=== PATIENT | female | born 1990 | race Caucasian/White ===

== ENCOUNTER 2021-01-31 06:00 | Day surgery (SDC) | payer OTHER ==
[~2021-01-31] VITALS: Ht 160 cm; Wt 76.0 kg
[~2021-01-31 06:00] MED LIST: IRON325 M1 PO; MULTI-DAY PLUS1 EAC1 PO
--- NOTE | 2021-01-31 10:12 | NUR ---
01/31/21 1012 Beatriz Lewis 1007- PT TO PACU IN SUPINE POSITION. EYES CLOSED. RESPONDS TO VERBAL AND TACTILE STIMULI BUT KEEPS EYES CLOSED. BREATHING EASY AND UNLABORED. SPO2 >95% ON 10 L O2 VIA SIMPLE MASK.
--- NOTE | 2021-01-31 11:08 | NUR ---
PATIENT BACK TO DAYSURGERY FROM PACU, REPORT AT BEDSIDE FROM SHAHRZAD BUSTILLO. PATIENT AWAKE AND ALERT. MINIMAL PAIN, ADMINISTERED PAIN MEDICATION PER MAR. PATIENT TOLERATING SIPS OF FLUID AND SNACKS. CALL LIGHT WITHIN REACH.
--- NOTE | 2021-01-31 11:45 | NUR ---
PATIENT UP TO BATHROOM STEADY ON FEET. REPORTS PAIN MEDICAITON EFFECTIVE. VOIDED WELL. PATIENT REQUESTED TO WEAR BRIEF HOME INSTEAD OF MESH PANTI AND KENDELL PAD. PROVIDED ITEMS TO PATIENT. PROVIDED DISCHARGE INSTRUCTION, AND WHEELCHAIR RIDE TO FRONT. PATIEN TRANSFERED WELL INTO [facility].
--- NOTE | 2021-02-01 15:22 | PATH ---
[facility] [address] [place], [place] [address] Signed SPECIMEN(S): A ENDOMETRIAL CURETTINGS SPECIMEN SOURCE: A. ENDOMETRIAL CURETTINGS CLINICAL HISTORY: Hysteroscopy DC with myomectomy. Uterine mass, abnormal uterine bleeding. FINAL PATHOLOGIC DIAGNOSIS: Endometrium, curettage: - Disordered proliferative endometrium. - Fragments of myometrium with no histopathologic abnormality. - Negative for atypical hyperplasia or malignancy. COMMENT: As part of [facility]' Quality Improvement Program, this case was reviewed by another member of our pathology staff. NAL:NRT:cml:C2NR MICROSCOPIC EXAMINATION: Histologic sections of all submitted blocks are examined by light microscopy. These findings, together with the gross examination, support the pathologic diagnosis. GROSS DESCRIPTION: The specimen, labeled "AM, A.," and designated on the requisition "endometrial curettings," is received in formalin and consists of linton tissue fragments with mucus and thickened clot material measuring 4.3 x 2.5 x 0.7 cm in aggregate. Specimen is filtered and entirely submitted in cassettes (A1-A2). AT (under the direct supervision of a pathologist) The Gross Description was prepared using a voice recognition system. The report was reviewed for accuracy; however, sound-alike word errors, addition and/or deletions may occur. If there is any question about this report, please contact Client Services. PERFORMING LABORATORY: The technical component was performed by [facility], [address] [place] [id number] (Looping Machine Operator: Magalie Rutledge MD; CLIA# [id number]). Professional interpretation was performed by [facility], [address] [facility]. [address], PATIENT NAME: KAROLINA STREETER PATHOLOGY DATE OF : [birth year] REPORT #: [id number] PHYSICIAN: GABRIEL PATHOLOGY PCP: NO PRIMARY CARE PHYSICIAN REPORT IS CONFIDENTIAL AND NOT TO BE RELEASED WITHOUT AUTHORIZATION [facility] [address] [facility] [place], [place] [address] Signed [place] [id number] (CLIA# [id number]). Diagnostician: Nadira Cobian MD Pathologist Electronically Signed 02/01/2021 Copies: ~ PATIENT NAME: KAROLINA STREETER PATHOLOGY DATE OF : [birth year] REPORT #: [id number] PHYSICIAN: GABRIEL PATHOLOGY PCP: NO PRIMARY CARE PHYSICIAN REPORT IS CONFIDENTIAL AND NOT TO BE RELEASED WITHOUT AUTHORIZATION
== END 2021-01-31 11:50 | disposition home or self-care (01) ==
LOC: DS 06:00 → OPS 06:00 → DS 11:30 → OPS 11:30
PROVIDERS: ATTEND Obstetrics & Gynecology
PROC: 0UDB8ZX Extraction of Endometrium, Via Natural or Artificial Opening Endoscopic, Diagnostic (ICD-10-PCS; principal; 2021-01-31 08:45)
DX: N85.8 Other specified noninflammatory disorders of uterus (principal); N93.9 Abnormal uterine and vaginal bleeding, unspecified; N76.0 Acute vaginitis; B96.89 Other specified bacterial agents as the cause of diseases classified elsewhere; D50.8 Other iron deficiency anemias; F17.210 Nicotine dependence, cigarettes, uncomplicated; Z20.822 Contact with and (suspected) exposure to COVID-19
CPT/HCPCS: 00952; J1100; J1885; J2250; J2270; J2405; J2704; J2765; J3010; J7121; U0003

== ENCOUNTER 2021-03-25 22:46 | Emergency (ER) | payer OTHER ==
[~2021-03-25] VITALS: Ht 160 cm; Wt 70.3 kg
[2021-03-26] MEDS ORDERED: TRANEXAMIC ACI650 MG PO (01:42)
[2021-04-15] MEDS ORDERED: TRIAMCINOLONE A15 G1 TOP (16:09)
[2021-04-15] MEDS ORDERED: COZAAR25 MG PO (16:09)
[2021-04-15] MEDS ORDERED: HYDROXYZINE HCL25 MG (16:10)
[2021-04-15] MEDS ORDERED: GELUSIL PO (16:10)
== END 2021-03-26 02:08 | disposition home or self-care (01) ==
LOC: ED 22:46
DX: N93.9 Abnormal uterine and vaginal bleeding, unspecified (principal); D25.9 Leiomyoma of uterus, unspecified; F17.200 Nicotine dependence, unspecified, uncomplicated; Z88.8 Allergy status to other drugs, medicaments and biological substances; Z79.899 Other long term (current) drug therapy
CPT/HCPCS: 96374; 96375; 99283-25; J1170; J2405

== ENCOUNTER 2021-04-25 06:55 | Day surgery (SDC) | payer OTHER ==
[~2021-04-25] VITALS: Ht 160 cm; Wt 70.5 kg
[~2021-04-25 06:55] MED LIST changes: +COZAAR25 MG PO; +GELUSIL PO; +HYDROXYZINE HCL25 MG; +TRANEXAMIC ACI650 MG PO; +TRIAMCINOLONE A15 G1 TOP
--- NOTE | 2021-04-25 11:45 | NUR ---
04/25/21 1145 Sheets,Luiza 1139 PT ARRIVED TO PACU ON 10L VIA MASK WITH ORAL AIRWAY IN PLACE. RESP EVEN AND UNLABORED. VSS. JAW THRUST USED OFF AND ON TO MAINTAIN AIRWAY. ABD BINDER IN PLACE FROM OR.
--- NOTE | 2021-04-25 13:30 | NUR ---
RCVD PT FROM INSTRUCTOR HAIRSPRING ANNA. PT ABLE TO TRANSFER SELF TO BED BY STAND BY ASSIST, RANDY LUNA. OXYGEN IN PLACE, NC 2 LITERS. WIN[place]OW DRAINING TO BEDSIDE BAG. PT REPORTS WANTING TO EAT NOW, REG LUNCH ORDERED. BOWEL TONES PRESENT. SCD'S IN PLACE. ORIENTED TO ROOM AND CALL LIGHT.
--- NOTE | 2021-04-25 14:00 | NUR ---
PT MEDICATED WITH MOTRIN AND 1 PERCOCET. RANDY REG DIET WELL. K PAD TO BACK. WATER FILLED.
--- NOTE | 2021-04-25 14:30 | NUR ---
PT TEARFUL AND STATES PAIN OUT OF CONTROL. MEDICATED WITH 1 MORE TAB PERCOCET.
--- NOTE | 2021-04-25 15:19 | NUR ---
DERMAPLAST SPRAY TO PERINEUM DUE TO CATHETER DISCOMFORT. PT REPORTS BACK PAIN RELIEF. OXYGEN REPLACED DUE TO PT WISHING TO NAP. PULSE OX IN PLACE.
--- NOTE | 2021-04-25 15:56 | NUR ---
VSS. PT RESTS IN BED. OFFERED RECLINER FOR COMFORT DUE TO BACK PAIN. PT REFUSES. STATES PAIN 6/10 AND THATS WHAT IS HER NORMAL THAT SHE LIVES WITH. NO NEEDS VOICED.
--- NOTE | 2021-04-25 16:40 | NUR ---
PT SITTING UP IN HIGH FOWLERS ON PHONE. PT DENIES NEEDS. PT DONNED OWN CLOTHING. ORDERED REG DINNER. NO FURTHER NEEDS.
--- NOTE | 2021-04-25 19:10 | NUR ---
PT AWAKE AND ALERT, BEDSIDE REPORT RECEIVED FROM ANA LUISA BUSTILLOC, PT WITHOUT REQUEST AT THIS TIME.
--- NOTE | 2021-04-25 20:00 | NUR ---
DR MONSALVE IN FOR A VISIT TO DISCUSS SURGERY, PT'S QUESTIONS ANSWERED AND PT VOICES UNDERSTANDING. DR MONSALVE REQUEST RN TO GIVE ENOXAPARIN ORDERED TONIGHT.
--- NOTE | 2021-04-25 21:15 | NUR ---
RN TO ROOM, PT UP IN BR CHANGING PERIPAD, STATES SHE IS WITHOUT DIZZINESS AND TOOK IT SLOW AMBULATING TO BR, RN ENCOURAGED PT TO CALL FOR ASSIST PRN. RN ASSIST WITH PLACING ON DEPENDS, PT IS CURRENTLY ON HER MENCES, FLOW MODERATE DARK RED WITHOUT CLOTS, LINEN CHANGED AND TEMPURPEDIC PAD PLACED ON BED.
--- NOTE | 2021-04-25 21:38 | NUR ---
PT BACK TO BED, SCDS REPLACED, RT MEDS GIVEN, PT REQUESTING HER HYDROXAZINE 25 MG, GIVEN PER ORDER, ASSESSMENT AND VS DONE, ABDOMINAL BINDER IN PLACE, WIN[place]OW EMPTIED 750 ML CLEAR YELLOW URINE, PT DRINKING WATER WELL WITHOUT NAUSEA AND VOMITING. PT ATTEMPITNG TO REST.
--- NOTE | 2021-04-26 00:15 | NUR ---
PT ASLEEP, RESP EVEN AND REGULAR
--- NOTE | 2021-04-26 02:16 | NUR ---
PT REQUESTING PAIN MED, MED PER ORDER WITH OXYCODONE 10MG PO
--- NOTE | 2021-04-26 04:00 | NUR ---
PT RESTING QUIETLY WITHOUT DISTRESS.
--- NOTE | 2021-04-26 07:20 | NUR ---
SHIFT REPORT GIVEN, PT ASLEEP, WITHOUT DISTRESS.
--- NOTE | 2021-04-26 07:38 | NUR ---
SHIFT ASSESSMENT COMPLETE. VSS. PT AAO X3. IV SITE INTACT AND BENIGN ABD BANDAGE DRY AND INTACT. SMALL DIME SIZED SHADOWING NOTED ON ABD BANDAGE AND OUTLINED. VAG DISCHARGE SCANT. POC DISCUSSED WITH PT. PT AGREEABLE.
--- NOTE | 2021-04-26 08:00 | NUR ---
WINSLOW CATH DRAINED OF 350 ML CLR YELLOW URINE. WINSLOW CATH DC'D WITH TIP INTACT. PT TOLERATES WELL.
--- NOTE | 2021-04-26 08:05 | NUR ---
PT UP TO BR AFTER WIN[place]OW REMOVAL AND VOID 100 ML CLR YELLOW URINE.
--- NOTE | 2021-04-26 09:21 | NUR ---
MEDICATED FOR PAIN PER PT REQUEST (SEE EMAR).
--- NOTE | 2021-04-26 09:35 | NUR ---
AM MEDS PROVIDED (SEE EMAR). BREAKFAST, REG DIET EATEN. TOLERATES WELL.
--- NOTE | 2021-04-26 11:29 | NUR ---
SMALL DIME SIZED SHADOWING NOTED ON ABD DRESSING AND OUTLINED.
--- NOTE | 2021-04-26 12:06 | NUR ---
VSS. MEDICATED FOR PAIN PER PT EQUEST (SEE EMAR). VOIDS 300 ML CLR YELLOW URINE WITHOUT DIFFICULTY.
--- NOTE | 2021-04-26 13:55 | NUR ---
RATES LOP DECREASED. SCHEDULED MOTRIN PROIVDED (SEE EMAR). lUNCH, REG DIET EATEN. SIGNIFICANT OTHER AT PT BEDSIDE. PT DENIES NEEDS.
--- NOTE | 2021-04-26 15:25 | NUR ---
MEDICATED FOR PAIN PER PT REQUEST (SEE EMAR). ICE WATER PROVIDED. SIGNIFICANT OTHER REMAINS AT PT BEDSIDE. PT DENIES FURTHER NEEDS.
--- NOTE | 2021-04-26 19:19 | NUR ---
MEDICATED FOR PAIN PER PT REQUEST. DENIES FURTHER NEEDS.
--- NOTE | 2021-04-26 19:21 | NUR ---
REPORT TO PHOTO TECHNOLOGIST
--- NOTE | 2021-04-26 23:19 | NUR ---
PT AMBULATES IN HALLWAY, DENIES NEEDS AT THIS TIME
--- NOTE | 2021-04-27 00:13 | NUR ---
PT UP TO BR TO VOID, REPORTS PAIN WITH VOIDING. HAT RETURNED TO TOILET TO MONITOR VOIDS. RETURNS TO BED. FRESH WATER. DENIES NEEDS.
--- NOTE | 2021-04-27 01:52 | NUR ---
PT RESTING WITH EYES CLOSED AND LIGHTS OFF, LEFT UNDISTURBED AT THIS TIME.
--- NOTE | 2021-04-27 04:14 | NUR ---
FOCUSED ASSESSMENT AND VS COMPLETE. PT RESTING IN BED AND WATCHING TV. SNACK TRAY CLEARED. REPORTS ABD FEELS HOT, KPAD AND ABD BINDER REMOVED. SMALL DRAINAGE NOTED ON ABD PAD, NOT OUTSIDE OF PREVIOUS OUTLINE. DENIES FURTHER NEEDS AT THIS TIME. ENCOURAGED REST.
--- NOTE | 2021-04-27 05:57 | NUR ---
PT SLEEPING SOUND, NORMAL RESPIRATIONS, WILL RETURN FOR MEDICATION ADMINSTRATION AND PAIN ASSESSMENT.
--- NOTE | 2021-04-27 06:38 | NUR ---
PT WAKES TO THIS RN VOICE FOR SCHEDULED MEDICATION. PT REQUESTS ADDITIONAL PAIN RX FOR 7/10 ABDOMINAL PAIN. PAIN MEDS ADMINISTERED AND PT RETURNS TO RESTING.
--- NOTE | 2021-04-27 08:00 | NUR ---
SHIFT ASSESSMENT COMPLETE. PT UP IN CHAIR EATING BREAKFAST. ICE WATER PROVIDED.
--- NOTE | 2021-04-27 09:32 | NUR ---
MEDICATED FOR PAIN PER PT REQUEST (SEE EMAR). DR. MONSALVE IN TO EXAMINE PT. ABD BANDAGE REMOVED BY DR. MONSALVE. ABD INCISION CDI AND WELL APPROXIMATED WITH RICKEY. PT TOLERATES WELL.
--- NOTE | 2021-04-27 10:45 | NUR ---
RATES LOP SOMEWHAT DECREASED. AMBULATES IN CUETO. TOLERATES ACTIVITY WELL.
[2021-04-27] MEDS ORDERED: NICOTINE PATCH1 EACH TD (11:37)
[2021-04-27] MEDS ORDERED: OXYCODONE HCL5 MG PO (11:38)
[2021-04-27] MEDS ORDERED: IBUPROFEN800 MG PO (11:41)
[2021-04-27] MEDS ORDERED: COLACE100 MG PO (11:41)
--- NOTE | 2021-04-27 11:53 | NUR ---
PT C/O DEAN AFTER NAP. VSS. ICE PACK PROVIDED FOR HEAD.
--- NOTE | 2021-04-27 12:00 | NUR ---
DC INSTRUCTIONS WITH PRECAUTIONS PROVIDED. PRESCRIPTION AND MEDICATION INSTRUCTIONS PROVIDED. PT VERBALIZES UNDERSTANDING.
--- NOTE | 2021-04-27 12:20 | NUR ---
DC'D TO HOME BY WC WITH SIGNIFICANT OTHER.
--- NOTE | 2021-05-01 18:06 | PATH ---
[facility] [address] [place], [place] [address] Signed SPECIMEN(S): A UTERUS SPECIMEN SOURCE: A. UTERUS CLINICAL HISTORY: Abnormal uterine bleeding; interstitial cystitis; submucosal leiomyoma of uterus FINAL PATHOLOGIC DIAGNOSIS: Uterine mass, excision: - Fragments of leiomyoma. COMMENT: As part of [facility]' Quality Improvement Program, this case was reviewed by another member of our pathology staff. NAL:tod:C2NR MICROSCOPIC EXAMINATION: Histologic sections of all submitted blocks are examined by light microscopy. The tissues were extensively sampled to reveal a benign smooth muscle proliferation in fascicles and whorls. Foci of hemorrhage and ischemic-type necrosis are seen, but mitoses are not increased. Evidence of malignancy is not identified. These findings, together with the gross examination, support the pathologic diagnosis. GROSS DESCRIPTION: The specimen, labeled "AM, A," and designated on the requisition "uterine mass, abnormal uterine bleeding, submucosal leiomyoma of uterus, interstitial cystitis," is received in formalin and consists of 301 g, six piece, somewhat encapsulated, somewhat lobulated, linton rubbery masses from 1.2 up to 11.7 cm in greatest dimension. Also in the container is an irregular shaped 5.7 x 1.8 x 0.5 cm segment of clotted blood. The smallest tissue mass is inked black, the second smallest tissue mass is inked yellow, the third smallest tissue mass is inked green, the fourth smallest tissue mass is inked orange, the second largest tissue mass is inked red, and the largest mass is blue. The masses are cross-sectioned to reveal somewhat lobulated, partially marbled linton-white tissue. The largest PATIENT NAME: KAROLINA STREETER PATHOLOGY DATE OF : [birth year] REPORT #: [id number] PHYSICIAN: GABRIEL KNOX PCP: KAROLINA MENDEZ NP REPORT IS CONFIDENTIAL AND NOT TO BE RELEASED WITHOUT AUTHORIZATION [facility] [address] [place], [place] [address] Signed mass has multiple, pink-red, softened, and discolored areas. A grossly definitive uterus or cervix is not identified. An additional discrete mass/lesion is not grossly identified. Quality Systems Specialist sections are submitted in four cassettes (A1-A4). AI (under the direct supervision of a pathologist) Per request by Dr. Cobian sections of the 2 largest masses are submitted as follows: A5-A10 largest mass A11-A14 second largest mass AI 04/30/21 9:37 AM The Gross Description was prepared using a voice recognition system. The report was reviewed for accuracy; however, sound-alike word errors, addition and/or deletions may occur. If there is any question about this report, please contact Client Services. PERFORMING LABORATORY: The technical component was performed by [facility], [address] [place] [address] (Perinatal Breastfeeding Assistant: Magalie Rutledge MD; CLIA# [id number]). [facility], [address] [place] [id number] (CLIA# [id number]). Diagnostician: Nadira Cobian MD Pathologist Electronically Signed 05/01/2021 Copies: ~ PATIENT NAME: KAROLINA STREETER PATHOLOGY DATE OF : [birth year] REPORT #: [id number] PHYSICIAN: GABRIEL PATHOLOGY PCP: KAROLINA MENDEZ NP REPORT IS CONFIDENTIAL AND NOT TO BE RELEASED WITHOUT AUTHORIZATION
--- NOTE | 2021-05-06 10:47 | OR ---
[address] [place] [address] Signed DATE OF OPERATION: 04/25/2021 SURGEON: Curry Barraza DO PROCEDURE: Electronically Signed By: CURRY BARRAZA DO 05/06/21 1047 PATIENT NAME: KAROLINA STREETER OPERATIVE REPORT DATE OF : [birth year] REPORT #: [id number] PHYSICIAN: CURRY BARRAZA DO PCP: KAROLINA MENDEZ NP REPORT IS CONFIDENTIAL AND NOT TO BE RELEASED WITHOUT AUTHORIZATION [address] [place], [place] [address] Signed Abdominal myomectomy. SCALE EXPERT: Dr. Smith. BLOOD LOSS: 75 mL. COMPLICATIONS: None. LINES: None. DRAINS: Velez catheter. FINDINGS: Enlarged uterus with a boggy texture, abnormal appearing 10 cm fibroid, which was removed in two separate pieces, unusually spongy in consistency. Following removal normal-sized uterus, normal-appearing fallopian tubes and bilateral ovaries. INDICATION: The patient is a 31-year-old female with recent history of menorrhagia, significant pelvic pain and pressure, dysmenorrhea, and uterine fibroids. She strongly desires definitive surgical management. Risks, benefits, and alternatives to abdominal myomectomy were discussed. She elected to proceed. DESCRIPTION OF PROCEDURE: The patient was given 2 g of Ancef IV and 5000 units heparin subcutaneously and was taken back to the operating room. She was positioned in supine position and placed under general anesthesia. She was prepped and draped in a normal sterile fashion and a Pfannenstiel incision was made with a scalpel and carried down to the underlying layer of fascia with Bovie cautery and the fascia was incised in midline and extended laterally with Nesbitt scissors. Inferior margin was grasped and elevated and underlying rectus muscle was dissected off bluntly and sharply with Nesbitt scissors. This was released and the superior margin of fascia was grasped and elevated and underlying rectus muscle was dissected off bluntly and sharply with Nesbitt scissors. Peritoneum was identified and entered sharply with Metzenbaum and peritoneum was extended superiorly using bandage scissors and inferiorly with gentle lateral traction. Wero retractor Electronically Signed By: CURRY BARRAZA DO 05/06/21 1047 PATIENT NAME: KAROLINA STREETER OPERATIVE REPORT DATE OF : [birth year] REPORT #: [id number] PHYSICIAN: CURRY BARRAZA DO PCP: KAROLINA MENDEZ NP REPORT IS CONFIDENTIAL AND NOT TO BE RELEASED WITHOUT AUTHORIZATION [address] [address] Signed was placed. Abdomen was packed with two sterile saline soaked lap sponges and uterus, tubes, and ovaries were inspected with findings as noted above. 2 units of vasopressin diluted in 10 mL sterile saline were injected in the myometrium. Vertical invision was made at the anterior fundus with Bovie cautery to the level of the fibroid. The fibroid was grasped with a double-toothed tenaculum and shelled out of the surrounding myometrium with blunt and sharp dissection with Metzenbaum scissors. The fibroid was noted to be abnormally soft in consistency. The endometrium was noted to be very thin overlying this fibroid and the endometrial cavity was entered at the level of the fundus. Remainder of the fibroid was shelled out without further incident, although entirety of the fibroid could not be confirmed as there was possible small extension towards the lower uterine segment. Fibroid was submitted to pathology. Endometrial cavity was reapproximated with 3-0 chromic in a alfqxs-[id number] fashion. Myometrium was closed in three layers with 0 Vicryl using a running fashion for the first two layers and a baseball stitch with 3-0 StrataFix at the serosal layer. Additional oozing was noted at the fundal end of the incision and the subserosal closure in a subcuticular manner was performed with 3-0 StrataFix. An additional [id number] suture of 0 Monocryl was placed at the superior apex after which excellent hemostasis of the incision was noted. The abdomen was irrigated with warm sterile water after which all packing was removed and surgeon's gloves were changed. Suction tip was changed and packing was replaced. Tisseel was applied over the hysterotomy with excellent hemostasis again noted. Packing was removed. Perineum was closed with 3-0 Vicryl in a running fashion. Rectus muscles were reapproximated with 0 Vicryl in a simple interrupted fashion using total of two stitches. The fascia was closed with 0 Vicryl in a running fashion and perforating subcutaneous vessels were cauterized with Bovie cautery before subcutaneous layer was reapproximated with 3-0 Vicryl in a running fashion and skin was closed with skin clips. The patient remained in the OR for a tap block to be performed by Anesthesia. Sponge and instrument counts were correct and she is noted to be in stable and satisfactory condition. Curry Barraza DO EM/MODL /[id number] Electronically Signed By: CURRY BARRAZA DO 05/06/21 1047 PATIENT NAME: KAROLINA STREETER OPERATIVE REPORT DATE OF : [birth year] REPORT #: [id number] PHYSICIAN: CURRY BARRAZA DO PCP: KAROLINA MENDEZ NP REPORT IS CONFIDENTIAL AND NOT TO BE RELEASED WITHOUT AUTHORIZATION [address] [place] [address] Signed Copies: ~ Electronically Signed By: CURRY BARRAZA DO 05/06/21 1047 PATIENT NAME: FERDINANDKAROLINAANKUR SMITH OPERATIVE REPORT DATE OF : [birth year] REPORT #: [id number] PHYSICIAN: CURRY BARRAZA DO PCP: KAROLINA MENDEZ NP REPORT IS CONFIDENTIAL AND NOT TO BE RELEASED WITHOUT AUTHORIZATION
== END 2021-04-27 12:20 | disposition home or self-care (01) ==
LOC: DS 06:55 → FBC 13:10 → DS 04-27 12:20
PROVIDERS: ATTEND Obstetrics & Gynecology
PROC: 0UB90ZZ Excision of Uterus, Open Approach (ICD-10-PCS; principal; 2021-04-25 09:00)
DX: D25.0 Submucous leiomyoma of uterus (principal); G89.18 Other acute postprocedural pain; F17.210 Nicotine dependence, cigarettes, uncomplicated; N30.10 Interstitial cystitis (chronic) without hematuria; K21.9 Gastro-esophageal reflux disease without esophagitis; I10 Essential (primary) hypertension; F41.9 Anxiety disorder, unspecified; K59.00 Constipation, unspecified; Z88.8 Allergy status to other drugs, medicaments and biological substances
CPT/HCPCS: 00840; 64488; 76942; 85027; J0690; J1100; J1170; J1644; J1650; J1885; J2001; J2250; J2405; J2704; J2795; J3010; J7121

== ENCOUNTER 2022-05-15 07:55 | Day surgery (SDC) | payer OTHER ==
[~2022-05-15] VITALS: Ht 160 cm; Wt 68.2 kg
--- NOTE | ~2022-05-15 | OR ---
[facility] [address] [facility] [place] [address] Draft DATE OF OPERATION: 05/15/2022 SURGEON: Curry Barraza DO PROCEDURE: Hysteroscopy, D and C-failed attempt. PREOPERATIVE DIAGNOSES: 1. Submucosal fibroid. 2. Dysmenorrhea. 3. History of abdominal myomectomy. POSTOPERATIVE DIAGNOSES: 1. Submucosal fibroid. 2. Stenotic cervix. 3. Dysmenorrhea. 4. History of abdominal myomectomy. DIRECTOR OF REVENUE: Mario Guerrier MD. BLOOD LOSS: 15 mL. ANESTHESIA: Monitored anesthesia care. INDICATIONS: The patient is a 32-year-old female nulligravid with history of abdominal myomectomy, who began having worsening dysmenorrhea and bleeding. Repeat ultrasound was performed demonstrating a 3 cm submucosal fibroid in the same location as her prior fibroid. Due to her symptoms and desire for childbearing, the patient strongly desired hysteroscopic myomectomy. Risks, benefits, and alternatives were discussed and she elected to proceed. DESCRIPTION OF PROCEDURE: The patient was taken to the operating room where she was positioned in dorsal lithotomy and placed under monitored anesthesia care. A weighted speculum was placed in the vagina and anterior lip of the cervix was grasped with an Allis clamp. External os of the cervix was easily sequentially dilated with Hegar dilators. Of note, resistance was PATIENT NAME: FERDINANDKAROLINAANKUR SMITH OPERATIVE REPORT DATE OF : [birth year] REPORT #: [id number] PHYSICIAN: CURRY BARRAZA DO PCP: KAROLINA MENDEZ NP REPORT IS CONFIDENTIAL AND NOT TO BE RELEASED WITHOUT AUTHORIZATION [facility] [address] [place], [place] [address] Draft met at the internal os and decision was made to assess with hysteroscope which was then introduced using sterile saline as a distension media with the Aquilex system. Internal os could be visualized, but despite attempts at hydrodissection and repeated attempts at dilation with the Hegar dilators, internal os was not appreciably entered. At one point, what appeared to potentially be uterine cavity with the left tubal ostia visible was entered, but if this is the case and significant scarring was present on the right occluding right tubal ostia. Due to significant distortion of anatomy and concern for creation of , no further operative measures were performed. All instrumentation was removed. Fluid deficit was noted to be 180 mL without any significant increases at any point during the procedure. Hemostasis was noted and sponge and instrument counts were correct. The patient was taken to recovery in stable and satisfactory condition. DO MAYLIN Bower/MODL /[id number] Copies: ~ PATIENT NAME: FERDINANDARVINKAROLINAANKUR SMITH OPERATIVE REPORT DATE OF : [birth year] REPORT #: [id number] PHYSICIAN: CURRY BARRAZA DO PCP: KAROLINA MENDEZ NP REPORT IS CONFIDENTIAL AND NOT TO BE RELEASED WITHOUT AUTHORIZATION
[~2022-05-15 07:55] MED LIST changes: +COLACE100 MG PO; +DECUBI VITE CA1 EACH PO; -HYDROXYZINE HCL25 MG; +HYDROXYZINE HCL25 MG PO; +IBUPROFEN800 MG PO; +MEGARED OMEGA-1 EAC1 PO; +NICOTINE PATCH1 EACH TD; +OXYCODONE HCL5 MG PO; +PR NATAL 400 C1 EACH PO
--- NOTE | 2022-05-15 08:23 | NUR ---
RT COLLECTED RAPID COVID 19 SWAB/ FLU SWAB/ AND RSV SWAB WITH NO COMPLICATIONS AT THIS TIME.
--- NOTE | 2022-05-15 12:26 | NUR ---
05/15/22 1225 Sheets,Luiza 1221 PT ARRIVED TO PACU ON 6L VIA MASK, VSS. PT SNORING AND RESP EVEN AND UNLABORED.
== END 2022-05-15 13:21 | disposition home or self-care (01) ==
LOC: OPS 07:55 → DS 07:55 → OPS 10:30 → DS 11:30 → OPS 13:21
PROVIDERS: ATTEND Obstetrics & Gynecology
PROC: 0UJD8ZZ Inspection of Uterus and Cervix, Via Natural or Artificial Opening Endoscopic (ICD-10-PCS; principal; 2022-05-15 10:30)
DX: D25.0 Submucous leiomyoma of uterus (principal); N94.6 Dysmenorrhea, unspecified; N88.2 Stricture and stenosis of cervix uteri; Z98.890 Other specified postprocedural states; Z20.822 Contact with and (suspected) exposure to COVID-19
CPT/HCPCS: 36415; 86850; 86900; 86901; 87502; A9270; C9803; J1100; J1885; J2001; J2250; J2405; J2704; J7121; U0003